=== PATIENT | female | born 1975 | race Caucasian/White ===

== ENCOUNTER 2021-09-30 09:04 | Day surgery (SDC) | payer BC ==
[2021-09-29 15:37] LABS: BASOPHILS ABSOLUTE AUTO 0.06 K/mm3 (0.00-0.23); BASOPHILS PERCENT AUTO 1 % (0-2); EOSINOPHILS ABSOLUTE AUTO 0.21 K/mm3 (0.00-0.68); EOSINOPHILS PERCENT AUTO 3 % (0-6); Hematocrit 36.1 % (33.0-51.0); Hemoglobin 11.5 g/dL (11.5-16.0); IMMATURE GRAN ABSOLUTE AUTO 0.03 K/mm3 (0.00-0.10); IMMATURE GRAN PERCENT AUTO 0 % (0-1); LYMPHOCYTES ABSOLUTE AUTO 2.01 K/mm3 (0.84-5.20); LYMPHOCYTES PERCENT AUTO 24 % (21-46); MONOCYTES ABSOLUTE AUTO 0.52 K/mm3 (0.16-1.47); MONOCYTES PERCENT AUTO 6 % (4-13); Mean Corpuscular HGB 26.1 pg (26.0-34.0); Mean Corpuscular HGB Conc 31.9 g/dL (31.5-36.5); Mean Corpuscular Volume 82 fL (80-100); Mean Platelet Volume 11.3 fL (9.1-12.4); NEUTROPHILS ABSOLUTE AUTO 5.41 K/mm3 (1.96-9.15); NEUTROPHILS PERCENT AUTO 66 % (41-73); Platelet Count 263 K/mm3 (150-400); RDW Coefficient Variation 15.6 % (11.7-14.2); RDW Standard Deviation 46.6 fL (35.1-46.3); Red Blood Cell Count 4.41 M/mm3 (3.80-5.20); White Blood Cell Count 8.24 K/mm3 (4.00-11.30)
[2021-09-29 17:04] LABS: Anion Gap 9 mmol/L (6-16); Blood Urea Nitrogen 15 mg/dL (8-24); Bun/Creatinine Ratio 18.4 (12.0-20.0); CO2, Blood 24 mmol/L (21-32); Chloride, Blood 108 mmol/L (98-108); Creatinine, Blood 0.81 mg/dL (0.40-1.00); Glomerular Filtration Rate >60 (60-); Glucose, Blood 139 mg/dL (70-99); Sodium, Blood 141 mmol/L (136-145)
[~2021-09-30] VITALS: Ht 177.8 cm; Wt 175.6 kg
[~2021-09-30 09:04] MED LIST: LABE200 PO; MULVITA PO; SYNTHROID100 MC7 PO; VITAMIN D310 MC4 PO
[2021-09-30] MEDS ORDERED: POLY500 PO (09:25)
[2021-09-30] MEDS ORDERED: DOCU100 PO (17:08)
[2021-09-30] MEDS ORDERED: Acetaminophen650 M1 PO (17:09)
[2021-09-30] MEDS ORDERED: IBUP200 PO (17:10)
--- NOTE | 2021-09-30 17:12 | NUR ---
[address] GUZMÁN REGARDING PATIENTS BP
--- NOTE | 2021-09-30 18:43 | NUR ---
[address] mendez and orders received, pt given po trandate
--- NOTE | 2021-09-30 18:44 | NUR ---
1800 new orders received. pt placed on mounter brass wind instruments and ivtrandate given
--- NOTE | 2021-09-30 19:36 | NUR ---
181 PT REPORTS ABD PAIN 04/09. IV FENTANYL GIVEN
--- NOTE | 2021-09-30 19:37 | NUR ---
1915 PT REPORTS PAIN LEVEL IS LESSENING AND IS CURRENTLY 3-4/10. PT UP TO BATHROOM TO VOID CLEAR YELLOW URINE. PT STATES VERY SCANT BLOODY VAGINAL DRAINAGE WHEN WIPED WITH TOILET PAPER. MONITORING BP, PT REMAINSIN SR ON TELEMETRY
--- NOTE | 2021-09-30 20:16 | NUR ---
DISCHARGE NOTE 1909: PHONE CALL TO DR. GUZMÁN, REPORTING BLOOD PRESSURE OF 160/76. PT REPORTS PAIN AT 3/10. DR. GUZMÁN STATED IT WAS OK FOR PT TO DISCHARGE HOME. PT DENIES HEADACHE, CHEST PAIN, OR DIZZINESS. NO NOTED DISCHARGE VAGINALLY. PT AMBULATING AND VOIDING WITH SPOUSE AT SIDE FOR SBA. RN REVIEWED DISCHARGE TEACHING WITH PT AND SPOUSE, INCLUDING INSTRUCTIONS FOR RETURN TO CLINIC. PT BELONGINGS COLLECTED. 20:06: PT'S IV'S IN LEFT HAND AND FOREARM WERE DC'D AT 20:00, PT TOLERATED PROCEDURE WELL. RN ESCORTED PT WITH ALL BELONGINGS , VIA WHEELCHAIR AND ACCOMPANIED BY PT'S SPOUSE, TO EXIT THE HOSPITAL. PT WAS TRANSPORTED BY PERSONAL VEHICLE, DRIVEN BY .
== END 2021-09-30 21:01 | disposition home or self-care (01) ==
LOC: ORSCMMR 09:04 → SURS 09:04 → ORSCMMR 09:05 → ORD 10:15 → ORSCMMR 10:15 → SURS 13:30 → ORSCMMR 21:01
PROVIDERS: Obstetrics & Gynecology
DX: D25.1 Intramural leiomyoma of uterus (principal); N72 Inflammatory disease of cervix uteri; D28.2 Benign neoplasm of uterine tubes and ligaments; N80.2 Endometriosis of fallopian tube; E11.9 Type 2 diabetes mellitus without complications; I10 Essential (primary) hypertension; E03.9 Hypothyroidism, unspecified; Z87.891 Personal history of nicotine dependence; E66.01 Morbid (severe) obesity due to excess calories; Z68.43 Body mass index [BMI] 50.0-59.9, adult; G47.33 Obstructive sleep apnea (adult) (pediatric); Z79.899 Other long term (current) drug therapy
CPT/HCPCS: 58571; S2900; 36415; 80048; 82947; 84703; 85025; 86850; 86900; 86901; 88307; A9270; J0171; J0330; J0690; J1100; J2250; J2370; J2405; J2704; J2710; J3010; J7120